=== PATIENT | female | born 1970 | race Caucasian/White ===

== ENCOUNTER → 2024-07-18 | Day surgery (SDC) | payer OTHER | END | disposition home or self-care (01) | LOC: JRADUS-SUR 08:27 | PROVIDERS: ATTEND Obstetrics & Gynecology | PROC: 0HBU3ZX Excision of Left Breast, Percutaneous Approach, Diagnostic (ICD-10-PCS; principal; 2024-07-18) | DX: N60.32 Fibrosclerosis of left breast (principal); N63.21 Unspecified lump in the left breast, upper outer quadrant | CPT/HCPCS: 19083; 76098-TC-FY; 76942-TC; 77065-TC; 87899; 88305-TC; A4648 ==